=== PATIENT | male | born 1950 | race Caucasian/White ===

== ENCOUNTER 2017-10-30 14:38 | Emergency (ER) | payer MEDICARE, OTHER ==
[~2017-10-30] VITALS: Ht 172.7 cm; Wt 60.4 kg
[2017-10-30] MEDS ORDERED: magnesium sulf injection 2 GM, MVI, adult No.4 with vit. K 10 ML in dextrose 5% water 5... IV SCH ×3 (15:35)
[2017-10-30] MEDS ORDERED: normal saline 1000ML IV soln IVB ONE (15:35)
[2017-10-30 15:56] LABS: BASOPHILS % (AUTO) 0.6 % (0-1); EOSINOPHILS # (AUTO) 0.1 X10'3 (0-0.9); HEMATOCRIT 43.1 % (42.0-52.0); HEMOGLOBIN 14.9 g/dl (14.0-17.9); LYMPHOCYTES # (AUTO) 2.7 X10'3 (1.1-4.8); LYMPHOCYTES % (AUTO) 37.3 % (21-51); MEAN CORPUSCULAR HEMOGLOBIN 32.7 PG (27.0-31.0); MEAN CORPUSCULAR HGB CONC 34.6 % (33.0-36.5); MEAN CORPUSCULAR VOLUME 94.4 FL (78-98); MEAN PLATELET VOLUME 6.6 FL (7.4-10.4); MONOCYTES # (AUTO) 0.3 X10'3 (0-0.9); MONOCYTES % (AUTO) 4.6 % (2-12); NEUTROPHILS # (AUTO) 4.1 X10'3 (1.8-7.7); NEUTROPHILS % (AUTO) 56.5 % (42-75); PLATELET COUNT 218 X10'3 (140-440); RED BLOOD COUNT 4.57 X10'6 (4.70-6.10); RED CELL DISTRIBUTION WIDTH 14.1 % (11.5-14.5); WHITE BLOOD COUNT 7.3 X10'3 (4.5-11.0)
[2017-10-30 16:07] LABS: INR 0.9 INR; PARTIAL THROMBOPLASTIN TIME 26 SECONDS (22-32); PROTHROMBIN TIME 9.4 SECONDS (9.0-12.0)
[2017-10-30 16:15] LABS: ALANINE AMINOTRANSFERASE 50 U/L (12-78); ALBUMIN 4.3 G/DL (3.4-5.0); ALBUMIN/GLOBULIN RATIO 1.2 (1.1-1.5); ALKALINE PHOSPHATASE 88 IU/L (46-116); ANION GAP 14 (8-16); ASPARTATE AMINO TRANSFERASE 56 U/L (10-37); BILIRUBIN,TOTAL 0.5 MG/DL (0.1-1.0); BLOOD UREA NITROGEN 15 MG/DL (7-18); BUN/CREATININE RATIO 24.2 (5.4-32.0); CALCIUM 8.7 MG/DL (8.5-10.1); CHLORIDE 101 MMOL/L (99-107); CREATININE 0.62 MG/DL (0.60-1.10); ETHANOL 0.271 GM/DL (0.0-0.010); GLUCOSE 97 MG/DL (70-104); SODIUM 142 MMOL/L (135-145); TOTAL CARBON DIOXIDE 26.6 MMOL/L (24-32); eGFR > 90 ML/MIN
[2017-10-30] MEDS: thiamine 100mg tablet PO SCH ×2 (17:16→17:24)
[2017-10-30] MEDS ORDERED: LORazepam 2 mg/ml vial IV ONE (17:30)
[2017-10-30 21:07] VITALS: BP 141/76
== END 2017-10-30 21:10 | disposition home or self-care (01) ==
LOC: ER 14:39
DX: F10.239 Alcohol dependence with withdrawal, unspecified (principal); Y90.9 Presence of alcohol in blood, level not specified
CPT/HCPCS: 36415; 71045; 80053; 80320; 82140; 82948; 85025; 85610; 85730; 93005; 96361; 96365; 96366; 99285; J3475; J7030; J7060

== ENCOUNTER 2017-11-16 19:12 | Inpatient (IN) | payer MEDICARE, OTHER ==
[~2017-11-16] VITALS: Ht 172.7 cm; Wt 63.0 kg
[2017-11-16 19:43] LABS: BASOPHILS % (AUTO) 0.2 % (0-1); EOSINOPHILS % (AUTO) 0 % (0-6); HEMATOCRIT 44.8 % (42.0-52.0); HEMOGLOBIN 15.3 g/dl (14.0-17.9); LYMPHOCYTES % (AUTO) 8.9 % (21-51); MEAN CORPUSCULAR HEMOGLOBIN 32.4 PG (27.0-31.0); MEAN CORPUSCULAR HGB CONC 34.2 % (33.0-36.5); MEAN CORPUSCULAR VOLUME 94.5 FL (78-98); MEAN PLATELET VOLUME 6.9 FL (7.4-10.4); MONOCYTES # (AUTO) 0.4 X10'3 (0-0.9); MONOCYTES % (AUTO) 3.2 % (2-12); NEUTROPHILS # (AUTO) 10.2 X10'3 (1.8-7.7); NEUTROPHILS % (AUTO) 87.7 % (42-75); PLATELET COUNT 443 X10'3 (140-440); RED BLOOD COUNT 4.74 X10'6 (4.70-6.10); RED CELL DISTRIBUTION WIDTH 13.9 % (11.5-14.5); WHITE BLOOD COUNT 11.6 X10'3 (4.5-11.0)
[2017-11-16 20:01] LABS: ALANINE AMINOTRANSFERASE 23 U/L (12-78); ALBUMIN 4.2 G/DL (3.4-5.0); ALBUMIN/GLOBULIN RATIO 1.1 (1.1-1.5); ALKALINE PHOSPHATASE 88 IU/L (46-116); ANION GAP 10 (8-16); ASPARTATE AMINO TRANSFERASE 13 U/L (10-37); BILIRUBIN,TOTAL 0.4 MG/DL (0.1-1.0); BLOOD UREA NITROGEN 16 MG/DL (7-18); BUN/CREATININE RATIO 16.7 (5.4-32.0); CALCIUM 9.6 MG/DL (8.5-10.1); CHLORIDE 97 MMOL/L (99-107); CREATININE 0.96 MG/DL (0.60-1.10); GLUCOSE 162 MG/DL (70-104); POTASSIUM 4.6 MMOL/L (3.5-5.1); SODIUM 136 MMOL/L (135-145); TOTAL CARBON DIOXIDE 28.9 MMOL/L (24-32); eGFR 78 ML/MIN
[2017-11-16] MEDS ORDERED: normal saline 1000ml 1,000 ML IV ONE ×2 (20:10→23:50)
[2017-11-16] MEDS ORDERED: morphine 2 MG/ML inj. syringe IV ONE ×2 (20:10→21:50)
[2017-11-16] MEDS ORDERED: ondansetron/PF 4mg/2ml inj IV ONE (20:10)
[2017-11-16] MEDS ORDERED: famotidine/PF 10 mg/ml inj IV ONE (20:20)
[2017-11-16] MEDS ORDERED: pantoprazole 40 MG vial IV ONE (20:20)
[2017-11-16] MEDS ORDERED: iohexol 350MG/ML 100ml bottle IV ONE (21:37)
[2017-11-16 21:56] LABS: LIPASE 151 U/L (73-393); TROPONIN I < 0.04 NG/ML (0.0-0.05)
[2017-11-17] MEDS ORDERED: morphine 4 MG/ML inj SYRINge IV PRN (01:15)
[2017-11-17] MEDS ORDERED: ondansetron/PF 4mg/2ml inj IV PRN (01:15)
[2017-11-17] MEDS: normal saline 1000ml 1,000 ML IV SCH ×3 (04:05→21:15)
[2017-11-17 06:34] LABS: CLARITY,URINE CLEAR (Clear); COLOR,URINE YELLOW (Yellow); GLUCOSE, URINE NEGATIVE (Neg); KETONES,URINE NEGATIVE (Neg); LEUKOCYTE ESTERASE ,URINE NEGATIVE (Neg); NITRITES, URINE NEGATIVE (Neg); OCCULT BLOOD,URINE NEGATIVE (Neg); PROTEIN,URINE TRACE mg/dl (Neg)
[2017-11-17 06:40] LABS: UA COLLECTION TYPE VOIDED
[2017-11-17 06:59] LABS: BACTERIA,URINE NONE SEEN /HPF (Neg); RBC,URINE NONE SEEN /HPF (0-2); SQUAMOUS EPITHELIAL CELL,UR NONE SEEN /LPF (FEW); WBC,URINE NONE SEEN /HPF (0-4)
[2017-11-17] MEDS ORDERED: NO HOME MEDS (08:45)
[2017-11-17] MEDS: pantoprazole 40 MG vial IV SCH ×2 (08:59→16:42)
[2017-11-17 12:30] VITALS: BP 129/78
[2017-11-17 15:00] VITALS: BP 134/81
[2017-11-18 00:15] VITALS: BP 129/76
[2017-11-18] MEDS: normal saline 1000ml 1,000 ML IV SCH ×2 (02:47→13:12)
[2017-11-18 05:47] LABS: BASOPHILS # (AUTO) 0.1 X10'3 (0-0.2); BASOPHILS % (AUTO) 0.6 % (0-1); EOSINOPHILS # (AUTO) 0.3 X10'3 (0-0.9); EOSINOPHILS % (AUTO) 3.3 % (0-6); HEMATOCRIT 39.1 % (42.0-52.0); HEMOGLOBIN 13.8 g/dl (14.0-17.9); LYMPHOCYTES # (AUTO) 2.2 X10'3 (1.1-4.8); LYMPHOCYTES % (AUTO) 26.2 % (21-51); MEAN CORPUSCULAR HEMOGLOBIN 33.1 PG (27.0-31.0); MEAN CORPUSCULAR HGB CONC 35.2 % (33.0-36.5); MEAN CORPUSCULAR VOLUME 94.1 FL (78-98); MEAN PLATELET VOLUME 7.2 FL (7.4-10.4); MONOCYTES # (AUTO) 0.6 X10'3 (0-0.9); MONOCYTES % (AUTO) 6.9 % (2-12); NEUTROPHILS # (AUTO) 5.4 X10'3 (1.8-7.7); PLATELET COUNT 310 X10'3 (140-440); RED BLOOD COUNT 4.16 X10'6 (4.70-6.10); RED CELL DISTRIBUTION WIDTH 14.5 % (11.5-14.5); WHITE BLOOD COUNT 8.5 X10'3 (4.5-11.0)
[2017-11-18 05:49] LABS: ALBUMIN 3.2 G/DL (3.4-5.0); ANION GAP 10 (8-16); BLOOD UREA NITROGEN 12 MG/DL (7-18); BUN/CREATININE RATIO 15.6 (5.4-32.0); CALCIUM 8.2 MG/DL (8.5-10.1); CHLORIDE 105 MMOL/L (99-107); CREATININE 0.77 MG/DL (0.60-1.10); GLUCOSE 72 MG/DL (70-104); SODIUM 141 MMOL/L (135-145); eGFR > 90 ML/MIN
[2017-11-18 07:01] VITALS: BP 131/77
[2017-11-18] MEDS: pantoprazole 40 MG vial IV SCH ×2 (08:28→17:09)
[2017-11-18] MEDS ORDERED: diatrozoate meglu/diatrozoate sod (37% iodine) 120ML oral solution PO SCH (10:00)
[2017-11-18] MEDS: diatr meglu/diatrizoate 30ml oral sol.-(3 dose) bottle PO SCH ×2 (10:28→13:42)
[2017-11-18 11:56] VITALS: BP 128/68
[2017-11-18] MEDS ORDERED: diatr meglu/diatrizoate 30ml oral sol.-(3 dose) bottle PO SCH (15:00)
[2017-11-18] MEDS ORDERED: MORPHINE 2MG in 2ml NS syringe IV PRN (19:19)
[2017-11-18 20:00] VITALS: BP 137/75
[2017-11-19] VITALS (12 sets, daily range): BP systolic 117–148; BP diastolic 65–85
[2017-11-19] MEDS: normal saline 1000ml 1,000 ML IV SCH ×2 (03:15→04:01)
[2017-11-19 05:39] LABS: BASOPHILS % (AUTO) 0.5 % (0-1); EOSINOPHILS # (AUTO) 0.3 X10'3 (0-0.9); EOSINOPHILS % (AUTO) 3.8 % (0-6); HEMATOCRIT 38.4 % (42.0-52.0); HEMOGLOBIN 13.3 g/dl (14.0-17.9); LYMPHOCYTES # (AUTO) 1.5 X10'3 (1.1-4.8); LYMPHOCYTES % (AUTO) 20.5 % (21-51); MEAN CORPUSCULAR HEMOGLOBIN 32.8 PG (27.0-31.0); MEAN CORPUSCULAR HGB CONC 34.8 % (33.0-36.5); MEAN CORPUSCULAR VOLUME 94.3 FL (78-98); MONOCYTES # (AUTO) 0.6 X10'3 (0-0.9); NEUTROPHILS # (AUTO) 4.8 X10'3 (1.8-7.7); NEUTROPHILS % (AUTO) 67.2 % (42-75); PLATELET COUNT 279 X10'3 (140-440); RED BLOOD COUNT 4.07 X10'6 (4.70-6.10); RED CELL DISTRIBUTION WIDTH 14.1 % (11.5-14.5); WHITE BLOOD COUNT 7.2 X10'3 (4.5-11.0)
[2017-11-19 06:24] LABS: ALANINE AMINOTRANSFERASE 17 U/L (12-78); ALBUMIN 3.2 G/DL (3.4-5.0); ALBUMIN/GLOBULIN RATIO 1.1 (1.1-1.5); ALKALINE PHOSPHATASE 65 IU/L (46-116); ANION GAP 11 (8-16); ASPARTATE AMINO TRANSFERASE 8 U/L (10-37); BILIRUBIN,TOTAL 0.7 MG/DL (0.1-1.0); BLOOD UREA NITROGEN 8 MG/DL (7-18); BUN/CREATININE RATIO 9.5 (5.4-32.0); CHLORIDE 105 MMOL/L (99-107); CREATININE 0.84 MG/DL (0.60-1.10); GLUCOSE 78 MG/DL (70-104); POTASSIUM 3.6 MMOL/L (3.5-5.1); SODIUM 141 MMOL/L (135-145); TOTAL CARBON DIOXIDE 25.3 MMOL/L (24-32); TOTAL PROTEIN 6.2 G/DL (6.4-8.2); eGFR > 90 ML/MIN
[2017-11-19] MEDS: pantoprazole 40 MG vial IV SCH (07:43)
[2017-11-19] MEDS ORDERED: fentaNYL/PF 50MCG/1 ML 2ML syringe ONE (11:16)
[2017-11-19] MEDS ORDERED: MIDAZolam 5mg/ml 2ml vial ONE (11:17)
[2017-11-19] MEDS ORDERED: LIDOcaine Viscous 15ml cup ONE (11:17)
[2017-11-19] MEDS ORDERED: midazolam 2 mg/2 ml injection IV PRN (11:40)
[2017-11-19] MEDS ORDERED: simethicone 40mg/0.6ml oral drops 30ml MC ONE (11:40)
[2017-11-19] MEDS ORDERED: PANT40TA4 PO (12:56)
== END 2017-11-19 16:55 | disposition home or self-care (01) | DRG 389 ==
LOC: ER 19:13 → ED HOLD 11-17 01:15 → PCU 3S 11-17 12:25 → MED 3N 11-17 23:57
PROVIDERS: ADMIT Family Medicine; ATTEND Internal Medicine
PROC: 0DB68ZX Excision of Stomach, Via Natural or Artificial Opening Endoscopic, Diagnostic (ICD-10-PCS; principal; 2017-11-19)
DX: K56.600 Partial intestinal obstruction, unspecified as to cause (principal); M87.9 Osteonecrosis, unspecified; K29.00 Acute gastritis without bleeding; K56.7 Ileus, unspecified; F10.21 Alcohol dependence, in remission; K20.9 Esophagitis, unspecified; I70.0 Atherosclerosis of aorta; K31.9 Disease of stomach and duodenum, unspecified; T39.395A Adverse effect of other nonsteroidal anti-inflammatory drugs [NSAID], initial encounter; F17.200 Nicotine dependence, unspecified, uncomplicated
CPT/HCPCS: 36415; 43239; 71045; 71275; 74018; 74160; 74174; 74176; 80048; 80053; 81001; 83605; 83690; 84484; 85025; 85610; 87040; 87070; 88305; 96374; 96375; 96376; 99285; A4620; A6212; C9113; G0500; J2250; J2270; J2405; J3010; J3490; J7030; Q9963; Q9967

== ENCOUNTER 2019-09-08 08:59 | Day surgery (SDC) | payer MEDICARE, OTHER ==
[~2019-09-08] VITALS: Ht 172.7 cm; Wt 63.4 kg
[2019-09-08] VITALS (13 sets, daily range): BP systolic 115–152; BP diastolic 61–80
[~2019-09-08 08:59] MED LIST: NO HOME MEDS; PANT40TA4 PO; cefazolin/dext.iso 2gm/100ml 100 ML IV ONE; famotidine 10mg tablet PO ONE; ringers solution, lacted 1,000 ML IV SCH
[2019-09-08] MEDS ORDERED: ATOR40TA72 PO (11:20)
[2019-09-08 11:54] LABS: BASOPHILS # (AUTO) 0.1 X10'3 (0-0.2); BASOPHILS % (AUTO) 0.8 % (0-1); EOSINOPHILS # (AUTO) 0.2 X10'3 (0-0.9); EOSINOPHILS % (AUTO) 2.7 % (0-6); LYMPHOCYTES # (AUTO) 1.9 X10'3 (1.1-4.8); LYMPHOCYTES % (AUTO) 27.8 % (21-51); MEAN CORPUSCULAR HEMOGLOBIN 32.2 PG (27.0-31.0); MEAN CORPUSCULAR HGB CONC 33.9 g/dL (33.0-36.5); MEAN CORPUSCULAR VOLUME 95.2 FL (78-98); MEAN PLATELET VOLUME 8.2 FL (7.4-10.4); MONOCYTES # (AUTO) 0.5 X10'3 (0-0.9); MONOCYTES % (AUTO) 7.9 % (2-12); NEUTROPHILS # (AUTO) 4.2 X10'3 (1.8-7.7); NEUTROPHILS % (AUTO) 60.8 % (42-75); PRE OP HEMATOCRIT 48.1 % (42.0-52.0); PRE OP HEMOGLOBIN 16.3 g/dL (14.0-17.9); PRE OP PLATELET COUNT 233 X10'3 (140-440); RED BLOOD COUNT 5.05 X10'6 (4.70-6.10); RED CELL DISTRIBUTION WIDTH 13.6 % (11.5-14.5)
[2019-09-08 12:03] LABS: ALBUMIN 4.6 G/DL (3.4-5.0); ALBUMIN/GLOBULIN RATIO 1.4 (1.1-1.5); ALKALINE PHOSPHATASE 111 IU/L (46-116); BLOOD UREA NITROGEN 10 MG/DL (7-18); BUN/CREATININE RATIO 12.8 (5.4-32.0); CALCIUM 9.3 MG/DL (8.5-10.1); CHLORIDE 103 MMOL/L (99-107); CREATININE 0.78 MG/DL (0.60-1.10); PRE OP ALT 33 U/L (30-65); PRE OP ANION GAP 2 (8-16); PRE OP AST 24 U/L (10-37); PRE OP BILIRUB, TOTAL 0.6 MG/DL (0.0-1.0); PRE OP GLUCOSE 83 MG/DL (70-104); PRE OP POTASSIUM 4.8 MMOL/L (3.4-5.1); PRE OP SODIUM 140 MMOL/L (135-145); TOTAL CARBON DIOXIDE 34.7 MMOL/L (24-32); eGFR > 90 ML/MIN
[2019-09-08] MEDS ORDERED: ringers solution, lacted 1,000 ML IV SCH ×2 (12:13→13:49)
[2019-09-08] MEDS ORDERED: ondansetron/PF 4mg/2ml inj IV PRN ×2 (12:15→13:50)
[2019-09-08] MEDS ORDERED: morphine 4 MG/ML inj SYRINge IV PRN ×4 (12:15→13:50)
[2019-09-08] MEDS ORDERED: fentaNYL/PF 50MCG/1 ML 2ML syringe IV PRN ×2 (12:15)
[2019-09-08] MEDS ORDERED: labetalol 20mg/4ml (5mg/ml) syringe IV PRN (12:15)
[2019-09-08] MEDS ORDERED: hydrALAZINE 20mg/ml inj. IV PRN (12:15)
[2019-09-08] MEDS ORDERED: sevoflurane 250ml liquid IH ONE (13:17)
[2019-09-08] MEDS ORDERED: fentaNYL/PF 50MCG/1 ML 2ML syringe ONE (13:25)
[2019-09-08] MEDS ORDERED: midazolam 2 mg/2 ml injection ONE (13:25)
[2019-09-08] MEDS ORDERED: BUPIVAcaine/PF 2.5 mg/ml (0.25%) 30ml vial ONE (13:32)
[2019-09-08] MEDS ORDERED: propofol inj 20 ML IV ONE (13:39)
[2019-09-08] MEDS ORDERED: meperidine/PF 25mg/ml syringe IV PRN ×3 (13:50)
[2019-09-08] MEDS ORDERED: proCHLORperazine 10 MG/2 ml inj IV PRN (13:50)
--- NOTE | 2019-09-08 14:12 | NUR ---
Received from OR via [facility], accompanied by Anesthesiologist DR POOL and report given by Anesthesiologist. PT VERY DROWSY, NO S/S OF DISTRESS/DISCOMFORT, RIGHT BUTTOCKS W/ISLAND DRSG COVERING INCISION CDI. Addendum: 09/08/19 at 1520 by Michelle Valentin RN Amended: Links added.
--- NOTE | 2019-09-08 16:12 | NUR ---
D/C INSTRUCTIONS GIVEN AND GONE OVER W/PT WHO VERBALIZES UNDERSTANDING, PT D/CD VIA W/C TO [facility] W/O INCIDENT, PTS BROTHER IS AVAILABLE TO HELP IF NEEDED BY PT. Addendum: 09/08/19 at 1626 by Michelle Valentin RN Amended: Links added.
== END 2019-09-08 16:12 | disposition home or self-care (01) ==
LOC: PRE-OP 08:59 → PAS 16:12
PROVIDERS: ATTEND Surgery
DX: L72.3 Sebaceous cyst (principal); F17.210 Nicotine dependence, cigarettes, uncomplicated; Z72.89 Other problems related to lifestyle; Z98.890 Other specified postprocedural states; Z79.899 Other long term (current) drug therapy; R20.8 Other disturbances of skin sensation
CPT/HCPCS: 11404; 12032; 36415; 80053; 85025; 93005; J2250; J2704; J3010; J3490; J7120; 88304; A4215; A4618; A7000